=== PATIENT | male | born 1940 | race Caucasian/White ===

== ENCOUNTER 2017-04-16 05:46 | Day surgery (SDC) | payer MEDICARE ==
[~2017-04-16] VITALS: Ht 175.3 cm; Wt 70.6 kg
[2017-04-16] VITALS (7 sets, daily range): BP systolic 103–131; BP diastolic 56–63; PULSE 65–72; RESP 12–18; O2SAT 94–99
[2017-04-16] MEDS: Lactated Ringer's 1,000 ML IV SCH ×2 (05:04→07:30)
[~2017-04-16 05:46] MED LIST: ACET-2605 PO; BUDE3CAP7 PO; CIPR-231 PO; MELA1TAB10 PO; METR500T19 PO
[2017-04-16] MEDS ORDERED: Dexamethasone 4 mg/mL Inj ONE (05:47)
[2017-04-16] MEDS ORDERED: Propofol 10,000 mCg/mL 20 mL Inj ONE (05:47)
[2017-04-16] MEDS ORDERED: Ondansetron 2 mg/mL 2 mL Inj ONE (05:47)
[2017-04-16] MEDS ORDERED: fentaNYL-PF 50 mCg/mL 2 mL Inj ONE (05:47)
[2017-04-16] MEDS ORDERED: Ampicillin-Sulbactam Inj 3,000 MG in 0.9% Sodium Chloride 100 ML IV SCH (06:00)
--- NOTE | 2017-04-16 06:47 | PCM.HPANE ---
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) Medications Hypertension Medication: No Home Meds Incl Beta Sony: No Reported Medications Acetaminophen/Diphenhydramine (Tylenol Pm Ex-Strength Caplet)500 Mg-25 Mg Tablet1 Each PO PRN For Pain 04/15/17 Metronidazole 500 Mg [id number] Mg PO BID Ref 0 04/15/17 Melatonin (Melatonin 1 mg Tablet)1 Each Tablet1 Mg PO HS Ref 0 04/15/17 Ciprofloxacin (Cipro)500 Mg [id number] Mg PO BID Ref 0 04/15/17 Budesonide EC 3 Mg Capsule9 Mg PO DAILY Ref 0 04/15/17 Discontinued Reported Medications Meloxicam 7.5 Mg Tablet PO BID PRN For Pain 30 Days Ref 0 11/18/14 Naproxen 500 Mg [id number] Mg PO BID PRN For Pain Ref 0 11/18/14 Melatonin (Melatonin 1 mg Tablet)1 Each Tablet PO HS PRN SLEEP Ref 0 11/18/14 Discontinued Scripts Acetaminophen (Tylenol)325 Mg [id number] Mg PO Q4H PRN For Pain 30 Days Prov:Mayur Johns 11/22/14 History History of ENT Problems?: No HEENT History: Denies:: Abnormal Airway Cataracts Difficult Intubation Dysphagia Glaucoma Hearing Problem Denture Type: None Teeth Condition: Within Normal Limits Hx of Heart Problems?: No Cardiovascular History: Denies:: AICD Atrial Fibrillation Chest Pain Heart Murmur Hypertension Irregular Heartbeat Pacemaker Valvular Heart Disease Hx of Respiratory Problem?: No Respiratory History: Denies:: Asthma COPD Cough Emphysema Hemoptysis Oxygen Administration Pneumonia Tuberculosis Use of C-PAP Machine Hx Neurologic Problems?: No Neurological History: Denies:: CVA Dementia Headaches Multiple Sclerosis Parkinson's Disease Seizures Hx of GI Problems?: Yes Hx of Problems?: Yes Male Hx: Positive for:: Prostate Problems (radical prostatectomy) Skin History: Denies:: History Skin Disorders? Pressure Ulcers Hx Musculoskeletal Problems?: Yes Musculoskeletal History: Positive for:: Musculoskeletal Trauma (recent cortisone shot right knee ) Osteoarthritis Denies:: Back Injury Fibromyalgia Joint Replacement Myasthenia Gravis Hx of Psycho/Social Problems?: No Psycho Social History: Denies:: Anxiety Hx Depression Hx Surgeries?: Yes (prostatctomy, Hernia repair, R knee) Hx Any Other Health Problems?: Yes Other History: Positive for:: Cancer (prostate) Denies:: Hospitalization Thyroid Disease History Blood Transfusions: Positive for:: Accept Blood Products? Denies:: Blood Transfuse Reaction Blood Transfusions Hx Diabetes: No Hx Alcohol Use: YesAlcoholic Drinks Per Day: a glass or two of wine daily ( not while on abx)Hx Substance Use: No Smoking Status: Never Smoker Have You Smoked inLast 12 mo: No Stop/Bang S-Snoring: Do You Snore Loudly: No T-Tired: feel tired, fatigued: No O-Obsered: Observed not breath: No P-Blood Pressure: treated: No B- Body Mass Index > 35 kg/m2: No A- Age over 50: Yes N- Neck Large Circumference: No G- Gender Male: Yes SHAJI Total Score: 2 Risk Assessment Category Category 1A: Patient has history of documented sleep apnea, and HAS NOT received any narcotic, sedative or anesthesia administration during this stay. Category 1B: Patient has history of documented sleep apnea, and HAS received any narcotic , sedative or anesthesia administration during this stay Category 2: Patient has SUSPECTED Obstructive Sleep Apnea, and HAS received any narcotic , sedative or anesthesia administration during this stay. Category 3: Patient has SUSPECTED Obstructive Sleep Apnea and HAS NOT received narcotic, sedative or anesthesia administration during this stay. Category 4: Outpatient in Procedural Areas with known sleep apnea or who screen positive for High Risk via the STOP/BANG questionnaire. Exam Exam Vital Signs Vital Signs Date Time Temp Pulse Resp B/P Pulse Ox O2 Delivery O2 Flow Rate FiO2 04/16/17 06:15 35.5 72 16 131/59 99 Room Air General Appearance: Alert, Oriented X3 HEENT/AIRWAY: MP 2 Lungs: Normal Air Movement Meds/Labs/Diagnostics Admission Meds Current Medications Lactated Ringer's (Lr) 1,000 ml @ 120 mls/hr Q8H20M IV Last administered on t 05:04; Start 04/16/17 at 05:00; Stop 04/16/17 at 13:19 Plan Impression Patient chart reviewed, patient interviewed and anesthestic plan with risks, benefits, and alternatives discussed, and informed consent obtained. NPO per Anesth. Guidelines: Yes ASA Physical Status: ASA2 Mod Systemic Disease Anesthetic Plan: GA Bene/Risks/Altern/Consents: Yes HP Complete Prior to Induction: Yes Sanjeev Balderrama MD Apr 16, 2017 06:47
[2017-04-16] MEDS ORDERED: Lactated Ringer's 500 ML IV PRN (07:09)
[2017-04-16] MEDS ORDERED: Lactated Ringer's 1,000 ML IV SCH (07:09)
[2017-04-16] MEDS ORDERED: Dexamethasone 4 mg/mL Inj IVPUSH PRN (07:10)
[2017-04-16] MEDS ORDERED: fentaNYL-PF 50 mCg/mL 2 mL Inj IVPUSH PRN (07:10)
[2017-04-16] MEDS ORDERED: Phenylephrine 10,000 mCg/mL Inj IVPUSH PRN (07:10)
[2017-04-16] MEDS ORDERED: Ondansetron 2 mg/mL 2 mL Inj IVPUSH PRN (07:10)
[2017-04-16] MEDS ORDERED: HYDROmorphone 1 mg/mL Inj IVPUSH PRN (07:10)
[2017-04-16] MEDS ORDERED: EPHEDrine Sulfate 50 mg/mL Inj IVPUSH PRN (07:10)
[2017-04-16] MEDS ORDERED: Bupivacaine-MPF 0.5% 30 mL Inj INFILTRATE ONE (08:07)
[2017-04-16] MEDS ORDERED: HYDROcodone-APAP 5-325 mg Tablet PO PRN (08:25)
--- NOTE | 2017-04-16 09:05 | OP ---
[address] [address] OPERATIVE REPORT PATIENT: MANSI VALENCIA : 1940 MR#: [id number] ADMIT: 04/16/2017 JOB ID: [id number] DATE OF SURGERY: 04/16/2017 PREOPERATIVE DIAGNOSIS(ES): 1. Perirectal abscess. 2. Probable fistula in ano. 3. Crohn's disease. POSTOPERATIVE DIAGNOSIS(ES): 1. Perirectal abscess. 2. 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 3. Crohn's disease. OPERATION: 1. Anoscopy. 2. Incision and drainage of perirectal abscess. 3. Placement of seton. SURGEON: Khang Rivas MD. SOLAR THERMAL INSTALLER: None. INDICATIONS: A 76-year-old man who has a history of Crohn's disease based on a colonoscopy demonstrating a right-sided colitis with skip areas; although, granulomas were not identified. He has developed a perirectal abscess with symptoms over the last month. He also has a past history of a fissure. On physical examination, he had an area of induration without erythema on the right posterolateral anal margin and subcutaneous tissue of the buttocks. He had an MRI at the end of last week that demonstrated an abscess in the same location. In the office, there appeared to be pus coming out of his anal canal and after discussing options with the patient, it was elected to proceed with evaluation under anesthesia with probable incision and drainage of an abscess and placement of a seton. FINDINGS: He had a perirectal abscess and the internal opening at the dentate line was in the posterior midline. With the patient in the lithotomy position, the abscess was at the 8 o'clock position. It is a high trans-sphincteric fistula and I elected to place a seton. The distal rectal mucosa as seen through the anoscope appeared normal. DESCRIPTION OF PROCEDURE: At the beginning and end of the operation, the SCOAP checklist was completed. A general anesthetic was induced. He was placed in lithotomy position. Hair was clipped, and using ChloraPrep, he was prepped and draped in the usual fashion. An anoscope was inserted and I could identify pus in the distal rectum, but, I could not identify the exact opening; although, I suspected it in the posterior midline. The area of induration was then aspirated and I got pus out of that and so I injected 0.5% plain bupivacaine in a radial dimension and then the incision was made, the abscess was entered. As I did that, a lot of pus also came out through the anal canal. I gently passed a probe and it went right to the expected site of the internal opening which was in the posterior midline. Using a vessel loop as a seton, I passed that through and connected it to the abscess drainage incision and held it together with clips. After he was cleaned, an ABD and mesh panties were placed. The estimated blood loss was negligible. I did not get a culture. The final sponge, needle and instrument counts were announced as correct. There were no apparent complications. He was returned to recovery room in stable condition. My plan with his underlying diagnosis of Crohn's is to leave the seton in for a long period of time. Often, it will gradually work through the sphincter.
--- NOTE | 2017-04-16 09:27 | PCM.ANEP1 ---
Post Anesthesia PACU Phase 1 Assessment Vital Signs Vital Signs Date Time Temp Pulse Resp B/P Pulse Ox O2 Delivery O2 Flow Rate FiO2 04/16/17 08:50 67 12 105/56 99 Room Air 04/16/17 08:45 36.7 68 15 110/63 94 Room Air 04/16/17 08:40 69 14 107/63 95 Room Air 04/16/17 08:35 71 12 109/60 99 Room Air 04/16/17 08:30 36.5 70 18 111/59 98 Simple Mask 8 04/16/17 06:15 35.5 72 16 131/59 99 Room Air Anesthetic Administered: GA Level of Alertness: Awake, talking Pain: No Nausea or Vomiting: No CV Function & Hydration Stable: Yes Airway Device: none Oxygen Delivery: Room Air Lungs: Normal Air Movement PACU Phase 2 Assessment Complications: No Follow up Care: No Patient Instructions Provided: N/A Sanjeev Balderrama MD Apr 16, 2017 09:27
== END 2017-04-16 23:59 | disposition home or self-care (01) ==
LOC: SAS 05:46
PROVIDERS: ATTEND Surgery
DX: K61.1 Rectal abscess (principal); M19.90 Unspecified osteoarthritis, unspecified site; Z79.899 Other long term (current) drug therapy; Z86.14 Personal history of Methicillin resistant Staphylococcus aureus infection
CPT/HCPCS: 46040; J0295; J1100; J1885; J2405; J2704; J3010; J7120

== ENCOUNTER → 2017-04-29 | Day surgery (SDC) | payer MEDICARE ==
[~2017-04-29] VITALS: Ht 175.3 cm; Wt 70.0 kg
[~2017-04-29] MED LIST changes: +0.9% Sodium Chloride 1,000 ML IV PRN; +Lidocaine Topical 2% 30 mL Jelly ONE; +Sodium Chloride LOK Flush 10 mL Syringe IV PRN; +fentaNYL-PF 50 mCg/mL 2 mL Inj IVPUSH PRN; +fentaNYL-PF 50 mCg/mL 2 mL Inj ONE
[2017-04-29 14:02] VITALS: BP 140/70; PULSE 79; RESP 16; O2SAT 100
[2017-04-29 14:55] VITALS: BP 134/73; PULSE 82; RESP 16; O2SAT 100
[2017-04-29 15:06] VITALS: BP 133/75; PULSE 78; RESP 16; O2SAT 100
--- NOTE | 2017-04-29 22:08 | ENDO ---
[address] [address] ENDOSCOPY PROCEDURE PATIENT: MANSI VALENCIA : 1940 MR#: [id number] ADMIT: 04/29/2017 JOB ID: [id number] DATE OF PROCEDURE: 04/29/2017 PRIMARY PROVIDER: Russell Reyes MD. PROCEDURE: Flexible sigmoidoscopy with biopsy. INDICATIONS: A 76-year-old male with a history of Crohn's and anal fissure. Over the last month, he has had symptoms concerning for relapsing fissure symptoms and even perirectal abscess. One was identified by imaging and since treated with incision, drainage, and seton placement. He continues to drain pus, but has a considerable amount of discomfort in and about the anal canal. Currently, he is on Tylenol antibiotics. Our objective here today was to review his distal GI tract and determine whether there is any significant proctitis contributing to his current clinical scenario. EQUIPMENT: [id number]. SEDATION: Fentanyl 100 mcg. COMPLICATIONS: None identified. BOWEL PREPARATION: Adequate. PROCEDURE INFORMATION: After the risks and benefits were explained, written and verbal informed consent was obtained. The patient was brought into the endoscopy suite and placed into the left lateral decubitus position. Digital rectal examination was accomplished. There was a considerable amount of pus seen draining from the right cleft. I used 2% lidocaine jelly to numb up the cutaneous epithelial layer and the internal anal canal. This was considerably uncomfortable for the patient, but he tolerated this over approximately five minutes. On rectal exam, the internal anal sphincter mechanism felt irregular but not hard. Ultimately, we introduced the colonoscope and easily identified the blue seton within the anal canal in the region where pus continued to drain. The scope was advanced into the rectum and ultimately to approximately 40 cm from the anal verge. We encountered solid stool at this point, normal in color. The scope was thereafter slowly withdrawn to evaluate the mucosa for any pathology. The colon was decompressed and the scope removed from the patient who tolerated the procedure reasonably well. During the latter aspect of the rectal exam, we applied some fentanyl for analgesic purposes and titrated the analgesic effect to his needs during the procedure. He did not experience a conscious sedation. FINDINGS: As described above, seton drain was identified and appeared to be in appropriate location with ongoing pus drainage. I found it difficult to identify the obvious internal opening, but suspect he has fistulized from somewhere within the chronic anal fissure inside the anal canal. This was quite inflamed and irritated appearing mucosa. Photographs were taken. The rectum proper was completely devoid of any element of inflammation at all. There was, however, a stretch of significant ulceration in the sigmoid colon from about 27 cm up to about 34 cm. This location was biopsied for histopathologic analysis. Beyond this, up into the 40 cm range, the mucosa appeared normal. Distal to the ulcerated section the mucosa was normal and then we ran into another slightly less conspicuous area of obvious superficial erosion versus early ulceration. ENDOSCOPIC DIAGNOSES: 1. Seton drain in situ. 2. No proctitis. 3. Patchy sigmoid inflammation. 4. Chronic anal fissure. RECOMMENDATIONS: 1. Await histopathology. 2. Continue Cipro, Flagyl and acetaminophen. 3. Continue to hold off on nonsteroidal anti-inflammatory medications. 4. Ultimately, I think the patient is going to require more definitive maintenance therapy for what appears to be chronic Crohn's, however, at this point I would like to see what the histopathology reveals. 5. It also appears as though the patient is likely going to require anal fistulectomy in that he does not seem to be getting much improvement from the nifedipine ointment. That said, he has admittedly not been very compliant and has somewhat expected the fissure to immediately be cured with application of the ointment. I explained that this is something that will need to be done twice a day over weeks in order to promote an environmental of healing.
--- NOTE | 2017-05-02 14:49 | PATH ---
SURGICAL PATHOLOGY Attending Physician:Jarred Michelle CASE STATUS: Signed Out PATIENT NAME: MANSI VALENCIA PID: [id number] : 1940 DATE COLLECTED:04/29/2017 00:00 SPECIMEN: Colon, Biopsy CLINICAL HISTORY: 1). SIGMOID COLON BIOPSY AT 32 CM FINAL DIAGNOSIS: Sigmoid Colon at 32 cm, Biopsy: Mild active colitis. Submucosal granulation tissue suggestive of healing ulcer. Negative for granulomata, dysplasia or malignancy. ICD10: K52.9 GROSS DESCRIPTION: The specimen is received in one formalin filled container labeled with the patient's name, sublabeled "sigmoid colon" and consists of 2 portions of tissue which aggregate to 0.3 x 0.3 x 0.3 CM. The specimen is entirely submitted in one cassette. 04/30/2017DC ICD-9 CODES: CPT CODES: 1: 78284 Electronically Signed Out Hardeep Hernandez MD, Ph.D. [facility] [address], [place] [address] Technical component performed at [facility], [address] [place] [address] Ave[address], [address]
== END | disposition home or self-care (01) ==
LOC: END 13:29
PROVIDERS: ATTEND Internal Medicine Gastroenterology
DX: K52.9 Noninfective gastroenteritis and colitis, unspecified (principal); K60.1 Chronic anal fissure; K63.89 Other specified diseases of intestine; K50.90 Crohn's disease, unspecified, without complications; D64.9 Anemia, unspecified
CPT/HCPCS: 45331; 99153; G0500; J2250; J3010; J7030